=== PATIENT | male | born 1970 | race Caucasian/White ===

== ENCOUNTER → 2016-07-30 | Outpatient (CLI) | payer BC ==
--- NOTE | 2016-07-30 10:50 | CT ---
EXAMINATION TYPE: CT abdomen pelvis w con DATE OF EXAM: 07/30/2016 10:28 AM COMPARISON: NONE HISTORY: Right lower quadrant pain CT DLP: 454.30 mGycm Automated exposure control for dose reduction was used. TECHNIQUE: Helical acquisition of images was performed from the lung bases through the pelvis. CONTRAST: 100 cc Omni 300 IV and oral contrast FINDINGS: LUNG BASES: No significant abnormality is appreciated. LIVER/GB: Small cyst within the left lobe measures approximately 11 mm. Liver shows low attenuation. The liver is not enlarged. Gallbladder is within normal limits. PANCREAS: No significant abnormality is seen. SPLEEN: No significant abnormality is seen. ADRENALS: No significant abnormality is seen. KIDNEYS: Small cortical cyst on the left measures only approximately 8 mm at the upper pole anteriorl y RETROPERITONEAL ADENOPATHY: None visualized REPRODUCTIVE ORGANS: Prostate is thought to be mildly enlarged. URINARY BLADDER: No significant abnormality is seen. PELVIC ADENOPATHY: None visualized. OSSEOUS STRUCTURES: No significant abnormality is seen. BOWEL: No bowel obstruction. There is abnormal soft tissue thickening within the region of the dista l ileum with associated soft tissue mass suggested measuring 2.5 cm, axial image 58, a locally enlarg ed lymph node is present. The appendix is normal. Sigmoid colon shows some wall thickening which is nonspecific, difficult to exclude a mucosal lesion. OTHER: Aorta shows normal caliber. IMPRESSION: Findings suggest a soft tissue mass in the distal ileum. There is some local wall thickening. Nonspec ific thickening of the sigmoid colon. Results relayed to Dr Buckley telephonically.
== END | disposition home or self-care (01) ==
LOC: RADCTMAIN 09:08
PROVIDERS: ATTEND Surgery
DX: R93.3 Abnormal findings on diagnostic imaging of other parts of digestive tract (principal); R10.31 Right lower quadrant pain
CPT/HCPCS: 74177; Q9967

== ENCOUNTER → 2016-08-04 | Outpatient (CLI) | payer BC ==
--- NOTE | 2016-08-04 11:10 | FL ---
EXAMINATION TYPE: FL small bowel follow through DATE OF EXAM: 08/04/2016 9:55 AM CLINICAL HISTORY: Patient who had recent onset right lower quadrant pain with recent abnormal CT. His tory of groin hernia repair surgery. TECHNIQUE: A single contrast small bowel follow through is performed utilizing ez Paque. A total o f 53 seconds of fluoroscopic time was utilized during procedure. 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 Right-sided pel elina phleboliths are redemonstrated The small bowel study shows normal transit to the colon in less than 30 minutes. There is a normal m ucosal fold pattern throughout the small bowel. There is no evidence of any stricture or filling def ect noted. The terminal ileum is spotted and appears unremarkable. Area inferior to this that is mor e suspicious on CT shows persistent area of apple core narrowing worrisome for neoplasm, there is robinson ewhat atypical anatomical appearance of the cecum as it appears to extends inferior and medial from t he origin of the appendix which is more lateral where this abnormal site is noted. Small bowel lesion felt less likely but not entirely excluded. IMPRESSION: Majority of small bowel unremarkable. See above with abnormal suspicious lesion inferior medial aspect of cecum felt identified correlating with recent CT. Colonoscopy correlation advised, i f colonoscopy is negative then further workup would be warranted but I favor colonic or cecal lesion.
== END ==
LOC: RADFLMAIN 08:31
PROVIDERS: ATTEND Surgery
DX: R10.84 Generalized abdominal pain (principal)
CPT/HCPCS: 74250

== ENCOUNTER → 2017-11-14 | Outpatient (CLI) | payer BC ==
--- NOTE | 2017-11-14 14:07 | CT ---
EXAMINATION TYPE: CT abdomen pelvis w con DATE OF EXAM: 11/14/2017 COMPARISON: 07/30/2016 HISTORY: RUQ pain, c/o lower abdominal pain CT DLP: 1070 mGycm Automated exposure control for dose reduction was used. CONTRAST: CT scan of the abdomen pelvis is performed with IV Contrast, patient injected with 100 mL of Isovue 3 00. FINDINGS- LUNG BASES- No significant abnormality is appreciated. LIVER/GB-tiny hypodensities within the liver measure less than 5 mm and are too small to characterize . There is a single larger 8 mm lesion within the left lobe of the liver which also is too small to c haracterize but stable and likely related to simple cyst.. PANCREAS- No gross abnormality is seen. SPLEEN- No gross abnormality is seen. ADRENALS- No gross abnormality is seen. KIDNEYS/BLADDER- no hydronephrosis or nephrolithiasis. Hypodense lesion within the left renal cortex measuring less than a centimeter stable and too small to characterize.. BOWEL-there is persistent mild thickening to the distal ileum and soft tissue fullness in the region of the distal ileum and ileocecal valve. Areas of shotty adenopathy are noted. There is a small hiata l hernia. Findings compatible with diverticulosis noted. LYMPH NODES- No greater than 1cm abdominal or pelvic lymph nodes are appreciated. OSSEOUS STRUCTURES- No significant abnormality is seen. OTHER- aorta of normal caliber. No free air. No free fluid. Tiny periumbilical hernia is stable. IMPRESSION- 1. There is persistent wall thickening involving the distal ileum extending into the region of the il eocecal valve/cecum. Although infectious inflammatory processes are in the differential diagnosis. A mucosal lesion or mass as previously discussed by CT and small bowel follow-through should be conside red. There remains a soft tissue nodule measuring approximately 1 cm in short axis adjacent to the il eum compatible with a stable appearing area of adenopathy. Carcinoid would be in the differential abisai gnosis.
== END | disposition home or self-care (01) ==
LOC: RADCTMAIN 09:52
PROVIDERS: ATTEND Surgery
DX: K63.89 Other specified diseases of intestine (principal)
CPT/HCPCS: 74177; Q9967

== ENCOUNTER → 2017-11-29 | Outpatient (CLI) | payer BC ==
--- NOTE | 2017-11-29 16:00 | FL ---
EXAMINATION: Small bowel follow through DATE: 11/29/2017 CLINICAL INDICATION: 47-year-old male follow-up small bowel mass. COMPARISON: 08/04/[address]s 11/14/2017 and 07/30/2016 Total Fluoroscopy Time: 2 minutes 10 seconds Coronal images: 33 FINDINGS: Following administration of barium, serial films were carried out to 30 minutes. Barium is seen to reach the colon. Loops of jejunum and ileum are compressed and examined under fluor oscopy. Distal ileal intraluminal filling defect is redemonstrated, for example, refer to page 27 through 30. This is a nonobstructing lesion and only subtly apparent, better seen on CT, and identified due to t he known findings on CT. The small bowel loops have a normal-caliber. Within the remainder of the small bowel, mucosal pattern is within normal limits. No intrinsic or extrinsic process is suspected. IMPRESSION: 1. Subtle filling defect within the distal ileum is redemonstrated. Better seen on CT. Given relative stability from 07/30/2016, an indolent process is suggested such as lymphoid hyperplasia or low-grade carcinoid tumor. Further laboratory assessment may be useful. 2. The remainder of the small bowel appears normal.
== END | disposition home or self-care (01) ==
LOC: RADFLMAIN 08:13
PROVIDERS: ATTEND Psychiatry & Neurology Psychiatry
DX: R93.3 Abnormal findings on diagnostic imaging of other parts of digestive tract (principal)
CPT/HCPCS: 74250